=== PATIENT | female | born 1945 ===

== ENCOUNTER 2021-05-22 08:56 | Day surgery (SDC) | payer OTHER ==
[~2021-05-22 08:56] MED LIST: AVAPRO150 MG PO; MULTI VITAMIN1 EACH PO
== END 2021-05-22 16:10 | disposition home or self-care (01) ==
LOC: CIR.AMB 08:56
PROVIDERS: ATTEND Specialist
DX: N84.0 Polyp of corpus uteri (principal); Z20.822 Contact with and (suspected) exposure to COVID-19